=== PATIENT | male | born 1995 | race Caucasian/White ===

== ENCOUNTER 2016-10-04 08:08 | Emergency (ER) | payer SELFPAY ==
[~2016-10-04] VITALS: Ht 172.7 cm; Wt 58.1 kg
[2016-10-04] MEDS ORDERED: TDAP DIPH,PERTUSS,TET VAC/PF 0.5 ML DISP.SYRIN IM ONE ×2 (08:45→09:04)
--- NOTE | 2016-10-04 08:58 | NUR ---
washed the left forearm thouroughly with soap and running water.
--- NOTE | 2016-10-04 09:12 | NUR ---
pt medically cleared, called missy for psych eval
[2016-10-04] MEDS ORDERED: LIDOCAINE 1%-EPI 1:100,000 20 ML VIAL TP ONE (09:15)
--- NOTE | 2016-10-04 09:48 | NUR ---
PT FRIEND AT BEDSIDE.
--- NOTE | 2016-10-04 10:54 | NUR ---
Patient discharged to home in stable conditon. Written and verbal after care instructions given. Patient verbalizes understanding of instructions.PT WALKS IN STEADY GAIT. Addendum: 10/04/16 at 1055 by AURY PT NON HOLDABLE PER RONAN .
[2016-10-04 11:02] VITALS: BP 129/77
== END 2016-10-04 11:03 | disposition home or self-care (01) ==
LOC: ER 08:08
DX: T14.91 Suicide attempt (principal); S51.812A Laceration without foreign body of left forearm, initial encounter; F10.20 Alcohol dependence, uncomplicated; F17.200 Nicotine dependence, unspecified, uncomplicated; F20.9 Schizophrenia, unspecified; F31.9 Bipolar disorder, unspecified; X78.0XXA Intentional self-harm by sharp glass, initial encounter; Y93.89 Activity, other specified; Y99.8 Other external cause status; Y92.89 Other specified places as the place of occurrence of the external cause
CPT/HCPCS: 12001; 90471; 90715; 99284; A4663; J3490; A4217